=== PATIENT | male | born 1965 | race Caucasian/White ===

== ENCOUNTER 2022-11-03 10:53 | Inpatient (IN) | payer OTHER ==
[~2022-11-03] VITALS: Ht 157.5 cm; Wt 68.0 kg
[2022-11-03 11:24] LABS: BASOPHILS # (AUTO) 0.1 K/UL (0.0-0.2); BASOPHILS % (AUTO) 0.6 % (0.0-2.0); EOSINOPHILS # (AUTO) 0.1 K/uL (0.0-0.7); EOSINOPHILS % (AUTO) 0.7 % (0.0-7.0); HEMATOCRIT 42.6 % (36.7-47.1); LYMPHOCYTES % (AUTO) 13.9 % (20.5-51.5); MEAN CORPUSCULAR HEMOGLOBIN 29.8 uug (23.8-33.4); MEAN CORPUSCULAR HGB CONC 33 g/dL (32.5-36.3); MEAN CORPUSCULAR VOLUME 90.7 fL (73.0-96.2); MONOCYTES # (AUTO) 0.6 K/uL (0.1-1.30); MONOCYTES % (AUTO) 4.3 % (0.0-11.0); NEUTROPHILS # (AUTO) 11.4 K/uL (1.8-8.9); NEUTROPHILS % (AUTO) 80.5 % (38.5-71.5); PLATELET COUNT (AUTO) 383 K/uL (152-348); RED BLOOD CELL COUNT(AUTO) 4.69 MIL/uL (4.06-5.63); RED CELL DISTRIBUTION WIDTH 15.9 % (12.1-16.2); WHITE BLOOD COUNT (AUTO) 14.1 K/uL (3.6-10.2)
[2022-11-03 11:30] LABS: DIFFERENTIAL COMMENT 1
[2022-11-03 11:50] LABS: CALCIUM 9.2 mg/dL (8.5-10.1); CARBON DIOXIDE 27 mmol/L (21-32); CHLORIDE 102 mmol/L (98-107); CREATININE 0.7 mg/dL (0.6-1.3); GLUCOSE 105 mg/dL (74-106); POTASSIUM 3.9 mmol/L (3.5-5.1); SODIUM SERUM 139 mmol/L (136-145); UREA NITROGEN, BLOOD 13 mg/dL (7-18)
[2022-11-03 12:03] LABS: ALANINE AMINOTRANSFERASE 27 U/L (16-63); ALBUMIN 3.3 g/dL (3.4-5.0); ALKALINE PHOSPHATASE 81 U/L (50-136); ASPARTATE AMINOTRANSFERASE 10 U/L (15-37); BILIRUBIN,DIRECT 0.1 mg/dL (0.0-0.2); BILIRUBIN,TOTAL 0.2 mg/dL (0.2-1.0); NT-PRO BNP 33 pg/mL (0-125); TOTAL PROTEIN, SERUM 7.2 g/dL (6.4-8.2)
[2022-11-03] MEDS ORDERED: REMEDY ESSENTIAL ZINC PASTE 113 GM TP PRN (17:00)
[2022-11-03] MEDS ORDERED: IV D5 1/2 NS 1000 ML 1,000 ML IV PRN (17:00)
[2022-11-03] MEDS ORDERED: ONDANSETRON 4 MG/2 ML VIAL IV PRN (17:00)
[2022-11-03] MEDS ORDERED: ACETAMINOPHEN 325 MG TABLET PO PRN (17:00)
[2022-11-03 17:10] VITALS: BP 97/57; TEMP 98.4; O2SAT 94
[2022-11-03 18:00] VITALS: BP 119/76; TEMP 97.4; O2SAT 98
[2022-11-03 20:00] VITALS: BP 121/64; TEMP 97.4; O2SAT 100
[2022-11-03] MEDS: LORAZEPAM 1 MG TABLET PO SCH (21:58)
[2022-11-03] MEDS: IV D5 1/2 NS 1000 ML 1,000 ML IV PRN (21:59)
[2022-11-04 04:00] VITALS: BP 115/66; TEMP 98.1; O2SAT 98
[2022-11-04 06:41] LABS: BASOPHILS % (AUTO) 0.4 % (0.0-2.0); EOSINOPHILS # (AUTO) 0.3 K/uL (0.0-0.7); EOSINOPHILS % (AUTO) 2.6 % (0.0-7.0); HEMATOCRIT 39.9 % (36.7-47.1); HEMOGLOBIN 13.3 g/dL (12.5-16.3); LYMPHOCYTES # (AUTO) 2.2 K/uL (0.8-4.8); LYMPHOCYTES % (AUTO) 20.7 % (20.5-51.5); MEAN CORPUSCULAR HEMOGLOBIN 30.4 uug (23.8-33.4); MEAN CORPUSCULAR HGB CONC 33 g/dL (32.5-36.3); MEAN CORPUSCULAR VOLUME 91.4 fL (73.0-96.2); MONOCYTES # (AUTO) 0.6 K/uL (0.1-1.30); MONOCYTES % (AUTO) 5.7 % (0.0-11.0); NEUTROPHILS # (AUTO) 7.5 K/uL (1.8-8.9); NEUTROPHILS % (AUTO) 70.6 % (38.5-71.5); PLATELET COUNT (AUTO) 338 K/uL (152-348); RED BLOOD CELL COUNT(AUTO) 4.37 MIL/uL (4.06-5.63); RED CELL DISTRIBUTION WIDTH 16.3 % (12.1-16.2); WHITE BLOOD COUNT (AUTO) 10.6 K/uL (3.6-10.2)
[2022-11-04 06:59] LABS: DIFFERENTIAL COMMENT 1
[2022-11-04 07:03] LABS: CALCIUM 8.6 mg/dL (8.5-10.1); CARBON DIOXIDE 27 mmol/L (21-32); CHLORIDE 104 mmol/L (98-107); CREATININE 0.6 mg/dL (0.6-1.3); GLUCOSE 92 mg/dL (74-106); PHOSPHOROUS 3.7 mg/dL (2.5-4.9); SODIUM SERUM 140 mmol/L (136-145); UREA NITROGEN, BLOOD 8 mg/dL (7-18)
[2022-11-04 08:04] VITALS: BP 102/64; TEMP 97.6; O2SAT 96
[2022-11-04] MEDS: LORAZEPAM 1 MG TABLET PO SCH ×2 (08:44→21:10)
[2022-11-04] MEDS ORDERED: GOLYTELY 4000 ML BOTTLE PO ONE (09:00)
[2022-11-04 11:00] VITALS: BP 103/63; TEMP 98.4; O2SAT 95
[2022-11-04] MEDS ORDERED: ERYTHROMYCIN BASE 250 MG TABLET.DR PO ONE ×3 (13:00→23:00)
[2022-11-04] MEDS ORDERED: NEOMYCIN SULFATE 500 MG TABLET PO ONE ×3 (13:00→23:00)
[2022-11-04] MEDS: IV D5 1/2 NS 1000 ML 1,000 ML IV PRN (13:19)
[2022-11-04] MEDS: ERYTHROMYCIN ETHYLSUCC 200 MG/5 ML SUSPENSION 100ML PO SCH ×2 (13:19→14:00)
[2022-11-04] MEDS ORDERED: ERYTHROMYCIN ETHYLSUCC 200 MG/5 ML SUSPENSION 100ML PO SCH ×2 (14:00→23:00)
[2022-11-04 15:14] VITALS: BP 107/67; TEMP 98.6; O2SAT 96
[2022-11-04] MEDS ORDERED: ACET-3117 PO (15:55)
[2022-11-04] MEDS ORDERED: ACET325T53 PO (15:56)
[2022-11-04 21:19] VITALS: BP 100/51; TEMP 98.2; O2SAT 97
[2022-11-04] MEDS ORDERED: PIPERACILLIN/TAZOBACTAM/D5W 50 ML IV ONE (22:16)
[2022-11-04] MEDS: PIPERACILLIN SODIUM/TAZOBACTAM 3.375 G in IV DEXTROSE 5% 50 ML IV SCH (22:36)
[2022-11-04] MEDS: MORPHINE SULFATE 2 MG/1 ML DISP.SYRIN IV PRN (23:31)
[2022-11-05 04:12] VITALS: BP 108/66; TEMP 98.4; O2SAT 94
[2022-11-05] MEDS ORDERED: PIPERACILLIN/TAZOBACTAM/D5W 50 ML IV ONE (04:30)
[2022-11-05] MEDS: PIPERACILLIN SODIUM/TAZOBACTAM 3.375 G in IV DEXTROSE 5% 50 ML IV SCH (05:50)
[2022-11-05] MEDS: IV D5 1/2 NS 1000 ML 1,000 ML IV PRN (05:50)
[2022-11-05 07:12] LABS: BASOPHILS % (AUTO) 0.5 % (0.0-2.0); EOSINOPHILS # (AUTO) 0.3 K/uL (0.0-0.7); EOSINOPHILS % (AUTO) 2.9 % (0.0-7.0); HEMATOCRIT 36.5 % (36.7-47.1); HEMOGLOBIN 12.3 g/dL (12.5-16.3); LYMPHOCYTES % (AUTO) 21.6 % (20.5-51.5); MEAN CORPUSCULAR HEMOGLOBIN 30.7 uug (23.8-33.4); MEAN CORPUSCULAR HGB CONC 34 g/dL (32.5-36.3); MEAN CORPUSCULAR VOLUME 91.1 fL (73.0-96.2); MONOCYTES # (AUTO) 0.6 K/uL (0.1-1.30); MONOCYTES % (AUTO) 6.6 % (0.0-11.0); NEUTROPHILS # (AUTO) 6.4 K/uL (1.8-8.9); NEUTROPHILS % (AUTO) 68.4 % (38.5-71.5); PLATELET COUNT (AUTO) 335 K/uL (152-348); RED BLOOD CELL COUNT(AUTO) 4.01 MIL/uL (4.06-5.63); RED CELL DISTRIBUTION WIDTH 15.7 % (12.1-16.2); WHITE BLOOD COUNT (AUTO) 9.3 K/uL (3.6-10.2)
[2022-11-05 07:30] LABS: DIFFERENTIAL COMMENT 1
[2022-11-05 07:30] LABS: *BILIRUBIN,URIN NEGATIVE (NEGATIVE); *BLOOD, URINE NEGATIVE (NEGATIVE); *CLARITY,URINE CLEAR (CLEAR); *COLOR,URINE YELLOW (YELLOW); *KETONES,URINE NEGATIVE (NEGATIVE); *PROTEIN,URINE NEGATIVE (NEGATIVE); *UROBILINOGEN,URINE 0.2 E.U./dl (NORMAL); LEUKOCYTE ESTERASE ,URINE NEGATIVE (NEGATIVE); NITRITE, URINE NEGATIVE (NEGATIVE); PH,URINE 8.5 (5.0-8.0); UGLUCOSE NEGATIVE (NEGATIVE)
[2022-11-05 07:42] LABS: ALANINE AMINOTRANSFERASE 14 U/L (16-63); ALBUMIN 2.5 g/dL (3.4-5.0); ALKALINE PHOSPHATASE 69 U/L (50-136); ASPARTATE AMINOTRANSFERASE 10 U/L (15-37); BILIRUBIN,TOTAL 0.5 mg/dL (0.2-1.0); CALCIUM 8.2 mg/dL (8.5-10.1); CARBON DIOXIDE 27 mmol/L (21-32); CHLORIDE 106 mmol/L (98-107); CREATININE 0.6 mg/dL (0.6-1.3); GLUCOSE 92 mg/dL (74-106); MAGNESIUM 1.9 mg/dL (1.8-2.4); PHOSPHOROUS 3.8 mg/dL (2.5-4.9); POTASSIUM 3.5 mmol/L (3.5-5.1); SODIUM SERUM 141 mmol/L (136-145); TOTAL PROTEIN, SERUM 5.8 g/dL (6.4-8.2); UREA NITROGEN, BLOOD 8 mg/dL (7-18)
[2022-11-05 08:00] VITALS: BP 92/58; TEMP 97.7; O2SAT 94
[2022-11-05] MEDS: LORAZEPAM 1 MG TABLET PO SCH ×2 (09:00→20:18)
[2022-11-05 09:49] LABS: CHOLESTEROL 143 mg/dL (<200); HDL CHOLESTEROL 41 mg/dL (40-60); TRIGLYCERIDES 72 MG/DL (30-150)
[2022-11-05] MEDS ORDERED: MIDAZOLAM HCL 2 MG/2 ML VIAL ONE (10:05)
[2022-11-05] MEDS ORDERED: FENTANYL CITRATE 250 MCG/5 ML AMPUL ONE (10:06)
[2022-11-05] MEDS ORDERED: HYDROMORPHONE 2 MG/1 ML DISP.SYRIN ONE (10:06)
[2022-11-05] MEDS ORDERED: ROCURONIUM BROMIDE 50 MG/5 ML VIAL ONE (10:07)
[2022-11-05] MEDS ORDERED: FAMOTIDINE. 20 MG/2 ML VIAL IV ONE (10:07)
[2022-11-05] MEDS ORDERED: CLINDAMYCIN 600 MG PIGGYBACK**ER OMNI IV ONE (10:08)
[2022-11-05] MEDS ORDERED: BUPIVACAINE 0.25% 30 ML VIAL ONE (11:46)
[2022-11-05] MEDS ORDERED: LIDOCAINE 1%-EPI 1:100,000 20 ML VIAL ONE (11:46)
[2022-11-05] MEDS ORDERED: SILVER NITRATE APPLICATOR STICK EACH TP ONE (12:15)
[2022-11-05] MEDS ORDERED: CEFAZOLIN 1 G VIAL ONE (13:14)
[2022-11-05] MEDS ORDERED: LIDOCAINE-MPF 2% 5 ML VIAL ONE (13:14)
[2022-11-05] MEDS ORDERED: EPHEDRINE SULFATE 50 MG/ML AMPUL ONE (13:14)
[2022-11-05] MEDS ORDERED: NEOSTIGMINE METHYLSULFATE 10 MG/10 ML VIAL ONE (13:14)
[2022-11-05] MEDS ORDERED: ONDANSETRON 4 MG/2 ML VIAL ONE (13:14)
[2022-11-05] MEDS ORDERED: GLYCOPYRROLATE 0.4 MG/2 ML VIAL ONE (13:14)
[2022-11-05] MEDS ORDERED: METOCLOPRAMIDE HCL 10 MG/2 ML VIAL ONE (13:14)
[2022-11-05] MEDS ORDERED: PROPOFOL 200 MG/20 ML BOTTLE ONE (13:14)
[2022-11-05] MEDS ORDERED: IV LACTATED RINGERS SOLUTION 1,000 ML IV PRN (13:45)
[2022-11-05] MEDS ORDERED: PIPERACILLIN SODIUM/TAZOBACTAM 3.375 G in IV DEXTROSE 5% 50 ML IV SCH (14:00)
[2022-11-05] MEDS: PIPERACILLIN SODIUM/TAZOBACTAM 3.375 G in IV DEXTROSE 5% 100 ML IV SCH ×2 (14:04→21:54)
[2022-11-05 14:29] VITALS: BP 98/50; TEMP 98.2; O2SAT 98
[2022-11-05] MEDS: CELECOXIB 200 MG CAPSULE PO SCH ×2 (15:01→20:18)
[2022-11-05] MEDS: ACETAMINOPHEN 325 MG TABLET PO SCH ×2 (15:01→21:54)
[2022-11-05] MEDS: GABAPENTIN 100 MG CAPSULE PO SCH ×2 (15:01→21:54)
[2022-11-05 15:30] VITALS: O2SAT 98
[2022-11-05 16:54] VITALS: BP 98/62; TEMP 98.2; O2SAT 100
[2022-11-05] MEDS: MORPHINE SULFATE 2 MG/1 ML DISP.SYRIN IV PRN (18:01)
[2022-11-05 20:00] VITALS: BP 99/52; TEMP 98; O2SAT 95
[2022-11-05] MEDS ORDERED: IV NORMAL SALINE 500 ML IV ONE (23:45)
[2022-11-06] VITALS (7 sets, daily range): BP systolic 83–98; BP diastolic 48–60; TEMP 98.1–98.9; O2SAT 93–99
[2022-11-06 00:01] LABS: BASOPHILS % (AUTO) 0.4 % (0.0-2.0); EOSINOPHILS # (AUTO) 0.2 K/uL (0.0-0.7); EOSINOPHILS % (AUTO) 1.6 % (0.0-7.0); HEMATOCRIT 34.4 % (36.7-47.1); HEMOGLOBIN 11.3 g/dL (12.5-16.3); LYMPHOCYTES # (AUTO) 2.1 K/uL (0.8-4.8); LYMPHOCYTES % (AUTO) 18.7 % (20.5-51.5); MEAN CORPUSCULAR HGB CONC 33 g/dL (32.5-36.3); MONOCYTES # (AUTO) 0.7 K/uL (0.1-1.30); MONOCYTES % (AUTO) 6.1 % (0.0-11.0); NEUTROPHILS # (AUTO) 8.4 K/uL (1.8-8.9); NEUTROPHILS % (AUTO) 73.2 % (38.5-71.5); PLATELET COUNT (AUTO) 299 K/uL (152-348); RED BLOOD CELL COUNT(AUTO) 3.78 MIL/uL (4.06-5.63); RED CELL DISTRIBUTION WIDTH 15.6 % (12.1-16.2); WHITE BLOOD COUNT (AUTO) 11.4 K/uL (3.6-10.2)
[2022-11-06 00:09] LABS: DIFFERENTIAL COMMENT 1
[2022-11-06 00:19] LABS: CALCIUM 7.6 mg/dL (8.5-10.1); CREATININE 0.8 mg/dL (0.6-1.3); POTASSIUM 3.5 mmol/L (3.5-5.1)
[2022-11-06] MEDS ORDERED: IV NS 1000 ML 1,000 ML IV ONE (01:45)
[2022-11-06] MEDS: GABAPENTIN 100 MG CAPSULE PO SCH ×4 (06:05→21:37)
[2022-11-06] MEDS: PIPERACILLIN SODIUM/TAZOBACTAM 3.375 G in IV DEXTROSE 5% 100 ML IV SCH (06:05)
[2022-11-06] MEDS: ACETAMINOPHEN 325 MG TABLET PO SCH ×3 (06:05→21:33)
[2022-11-06] MEDS ORDERED: MAGNESIUM SULFATE/D5W 100 ML IV SCH ×2 (09:00→11:00)
[2022-11-06] MEDS: CELECOXIB 200 MG CAPSULE PO SCH ×3 (09:16→21:33)
[2022-11-07 04:01] VITALS: BP 101/62; TEMP 98.8; O2SAT 95
[2022-11-07] MEDS: GABAPENTIN 100 MG CAPSULE PO SCH (06:00)
[2022-11-07] MEDS: ACETAMINOPHEN 325 MG TABLET PO SCH (06:07)
[2022-11-07 06:53] LABS: BASOPHILS % (AUTO) 0.3 % (0.0-2.0); EOSINOPHILS # (AUTO) 0.3 K/uL (0.0-0.7); EOSINOPHILS % (AUTO) 2.4 % (0.0-7.0); HEMATOCRIT 36.4 % (36.7-47.1); LYMPHOCYTES # (AUTO) 1.9 K/uL (0.8-4.8); LYMPHOCYTES % (AUTO) 16.5 % (20.5-51.5); MEAN CORPUSCULAR HEMOGLOBIN 30.1 uug (23.8-33.4); MEAN CORPUSCULAR HGB CONC 33 g/dL (32.5-36.3); MEAN CORPUSCULAR VOLUME 91.1 fL (73.0-96.2); MONOCYTES # (AUTO) 0.5 K/uL (0.1-1.30); MONOCYTES % (AUTO) 4.5 % (0.0-11.0); NEUTROPHILS % (AUTO) 76.3 % (38.5-71.5); PLATELET COUNT (AUTO) 310 K/uL (152-348); RED CELL DISTRIBUTION WIDTH 15.5 % (12.1-16.2); WHITE BLOOD COUNT (AUTO) 11.8 K/uL (3.6-10.2)
[2022-11-07 07:02] LABS: DIFFERENTIAL COMMENT 1
[2022-11-07 07:15] LABS: ALANINE AMINOTRANSFERASE 14 U/L (16-63); ALBUMIN 2.3 g/dL (3.4-5.0); ALKALINE PHOSPHATASE 61 U/L (50-136); ASPARTATE AMINOTRANSFERASE 9 U/L (15-37); BILIRUBIN,TOTAL 0.4 mg/dL (0.2-1.0); CALCIUM 8.5 mg/dL (8.5-10.1); CARBON DIOXIDE 27 mmol/L (21-32); CHLORIDE 109 mmol/L (98-107); CREATININE 0.6 mg/dL (0.6-1.3); GLUCOSE 88 mg/dL (74-106); MAGNESIUM 1.8 mg/dL (1.8-2.4); PHOSPHOROUS 3.2 mg/dL (2.5-4.9); POTASSIUM 3.5 mmol/L (3.5-5.1); SODIUM SERUM 145 mmol/L (136-145); TOTAL PROTEIN, SERUM 5.7 g/dL (6.4-8.2); UREA NITROGEN, BLOOD 6 mg/dL (7-18)
[2022-11-07] MEDS ORDERED: POTASSIUM CHLORIDE 20 MEQ TAB.PRT.SR PO ONE (07:45)
[2022-11-07] MEDS ORDERED: MULTIVITAMINS,THERAPEUTIC TABLET PO SCH (09:00)
[2022-11-07] MEDS: CELECOXIB 200 MG CAPSULE PO SCH (09:22)
[2022-11-07] MEDS ORDERED: DOCU-141 PO (10:35)
[2022-11-07] MEDS ORDERED: ACID1TAB4 PO (10:35)
[2022-11-07] MEDS ORDERED: ACET-2154 PO (10:35)
[2022-11-07] MEDS ORDERED: CEPH500C2 PO (10:35)
[2022-11-07 11:36] VITALS: BP 108/58; TEMP 98.2; O2SAT 96
[2022-11-08] MEDS ORDERED: PANTOPRAZOLE SODIUM 40 MG TABLET.DR PO SCH (07:00)
== END 2022-11-07 12:10 | disposition home health service (06) | DRG 231 ==
LOC: ER 10:53 → MEDSURG3 15:55 → TELE3 11-06 02:56 → MEDSURG3 11-06 22:08
PROVIDERS: ADMIT Nurse Practitioner Acute Care; ATTEND Nurse Practitioner Acute Care
PROC: 0D1N4Z4 Bypass Sigmoid Colon to Cutaneous, Percutaneous Endoscopic Approach (ICD-10-PCS; principal; 2022-11-05)
PROC: 0D9P3ZZ Drainage of Rectum, Percutaneous Approach (ICD-10-PCS; principal; 2022-11-05)
DX: K61.31 Horseshoe abscess (principal); E44.1 Mild protein-calorie malnutrition; D72.829 Elevated white blood cell count, unspecified; K61.1 Rectal abscess; Z87.891 Personal history of nicotine dependence; D75.839 Thrombocytosis, unspecified; K62.89 Other specified diseases of anus and rectum
CPT/HCPCS: 36415; 71045; 83735; 84100; 84484; 85025; 85730; 86850; 86900; 86901; 93005; A4649; A4663; G0378; J0690; J1170; J2250; J2270; J2405; J2543; J2765; J3010; J3475; J3490; J7040; J7120; J8499

== ENCOUNTER 2023-06-05 07:44 | Inpatient (IN) | payer OTHER ==
[~2023-06-05] VITALS: Ht 160 cm; Wt 60.8 kg
[~2023-06-05 07:44] MED LIST: ACET-2154 PO; ACID1TAB4 PO; CEPH500C2 PO
[2023-06-05 08:53] LABS: BASOPHILS # (AUTO) 0.1 K/UL (0.0-0.2); BASOPHILS % (AUTO) 0.5 % (0.0-2.0); EOSINOPHILS # (AUTO) 0.2 K/uL (0.0-0.7); EOSINOPHILS % (AUTO) 1.8 % (0.0-7.0); HEMATOCRIT 44.8 % (36.7-47.1); HEMOGLOBIN 15.3 g/dL (12.5-16.3); LYMPHOCYTES # (AUTO) 2.2 K/uL (0.8-4.8); LYMPHOCYTES % (AUTO) 17.6 % (20.5-51.5); MEAN CORPUSCULAR HGB CONC 34 g/dL (32.5-36.3); MEAN CORPUSCULAR VOLUME 93.5 fL (73.0-96.2); MONOCYTES # (AUTO) 0.5 K/uL (0.1-1.30); MONOCYTES % (AUTO) 4.2 % (0.0-11.0); NEUTROPHILS # (AUTO) 9.5 K/uL (1.8-8.9); NEUTROPHILS % (AUTO) 75.9 % (38.5-71.5); PLATELET COUNT (AUTO) 300 K/uL (152-348); RED BLOOD CELL COUNT(AUTO) 4.79 MIL/uL (4.06-5.63); RED CELL DISTRIBUTION WIDTH 14.3 % (12.1-16.2); WHITE BLOOD COUNT (AUTO) 12.5 K/uL (3.6-10.2)
[2023-06-05 09:01] LABS: CARBON DIOXIDE 26 mmol/L (21-32); CHLORIDE 107 mmol/L (98-107); CREATININE 0.7 mg/dL (0.6-1.3); GLUCOSE 110 mg/dL (74-106); POTASSIUM 3.7 mmol/L (3.5-5.1); SODIUM SERUM 141 mmol/L (136-145); UREA NITROGEN, BLOOD 17 mg/dL (7-18)
[2023-06-05 09:03] LABS: DIFFERENTIAL COMMENT 1
[2023-06-05 09:10] LABS: ALANINE AMINOTRANSFERASE 26 U/L (16-63); ALBUMIN 3.2 g/dL (3.4-5.0); ALKALINE PHOSPHATASE 73 U/L (50-136); ASPARTATE AMINOTRANSFERASE 14 U/L (15-37); BILIRUBIN,DIRECT 0.1 mg/dL (0.0-0.2); BILIRUBIN,TOTAL 0.4 mg/dL (0.2-1.0); LIPASE 43 U/L (16-77)
[2023-06-05] MEDS ORDERED: PIPERACILLIN/TAZO 4.5 GM VIAL IV ONE (10:30)
[2023-06-05] MEDS ORDERED: PIPERACILLIN SODIUM/TAZOBACTAM 4.5 G in IV DEXTROSE 5% 50 ML IV SCH (10:30)
[2023-06-05] MEDS: PIPERACILLIN SODIUM/TAZOBACTAM 4.5 G in IV DEXTROSE 5% 50 ML IV ONE (10:50)
[2023-06-05] MEDS: IV NORMAL SALINE 1000 ML BAG IV ONE (10:50)
[2023-06-05] MEDS ORDERED: KETOROLAC TROMETHAMINE 15 MG INJ ONE (11:04)
[2023-06-05] MEDS: KETOROLAC TROMETHAMINE 15 MG INJ IVP ONE (11:08)
[2023-06-05] MEDS ORDERED: ONDANSETRON 4 MG/2 ML VIAL IV PRN (11:45)
[2023-06-05] MEDS ORDERED: MORPHINE SULFATE 2 MG/1 ML DISP.SYRIN IV PRN (11:45)
[2023-06-05] MEDS ORDERED: ACETAMINOPHEN 325 MG TABLET PO PRN (11:45)
[2023-06-05] MEDS ORDERED: diphenhydrAMINE 50 MG/1 ML VIAL ONE (11:47)
[2023-06-05] MEDS: diphenhydrAMINE 50 MG/1 ML VIAL IV PRN (11:54)
[2023-06-05 16:00] VITALS: BP 98/64; TEMP 97.2
[2023-06-05] MEDS ORDERED: TRANEXAMIC ACID 1,000 MG/10 ML VIAL ONE ×2 (16:00→17:48)
[2023-06-05] MEDS ORDERED: LIDOCAINE-MPF 2% 5 ML VIAL ONE (16:45)
[2023-06-05] MEDS ORDERED: CEFAZOLIN 1 G VIAL ONE (16:45)
[2023-06-05] MEDS ORDERED: PROPOFOL 200 MG/20 ML BOTTLE ONE (16:45)
[2023-06-05] MEDS ORDERED: METOCLOPRAMIDE HCL 10 MG/2 ML VIAL ONE (16:45)
[2023-06-05] MEDS ORDERED: PHENYLEPHRINE 10 MG/1 ML VIAL ONE (16:45)
[2023-06-05] MEDS ORDERED: VECURONIUM BROMIDE 10 MG VIAL IV ONE (16:45)
[2023-06-05] MEDS ORDERED: DEXAMETHASONE SOD PHOSPHATE 4 MG INJ ONE (16:45)
[2023-06-05] MEDS ORDERED: ROPIVACAINE HCL/PF 0.5% ( 5 MG/ML ) , 20 ML VIAL ONE (18:47)
[2023-06-05] MEDS ORDERED: HYDROMORPHONE 2 MG/1 ML DISP.SYRIN ONE (18:47)
[2023-06-05] MEDS ORDERED: ALBUMIN HUMAN 5% 250 ML ONE (20:00)
[2023-06-05 22:00] VITALS: BP 110/68; TEMP 97.3; O2SAT 94
[2023-06-05] MEDS: HYDROMORPHONE 1 MG/1 ML DISP.SYRIN IVP PRN (22:55)
[2023-06-05] MEDS: IV NS 1000 ML 1,000 ML IV PRN (23:01)
[2023-06-05] MEDS ORDERED: PIPERACILLIN SODIUM/TAZO 3.375 GM VIAL ONE (23:22)
[2023-06-05] MEDS: PIPERACILLIN SODIUM/TAZOBACTAM 3.375 G in IV DEXTROSE 5% 50 ML IV SCH (23:54)
[2023-06-06] MEDS: PROPOFOL 100 ML ONE (00:08)
[2023-06-06] MEDS ORDERED: PIPERACILLIN/TAZOBACTAM/D5W 50 ML IV ONE (00:29)
[2023-06-06] MEDS: IBUPROFEN 800 MG TABLET PO PRN (01:16)
[2023-06-06 06:00] VITALS: BP 95/53; TEMP 99.1; O2SAT 96
[2023-06-06] MEDS: GABAPENTIN 100 MG CAPSULE PO SCH (06:16)
[2023-06-06] MEDS: ACETAMINOPHEN 325 MG TABLET PO SCH (06:16)
[2023-06-06 08:10] LABS: BASOPHILS % (AUTO) 0.1 % (0.0-2.0); DIFFERENTIAL COMMENT 1; HEMOGLOBIN 12.7 g/dL (12.5-16.3); LYMPHOCYTES # (AUTO) 1.5 K/uL (0.8-4.8); LYMPHOCYTES % (AUTO) 12.3 % (20.5-51.5); MEAN CORPUSCULAR HEMOGLOBIN 31.8 uug (23.8-33.4); MEAN CORPUSCULAR HGB CONC 34 g/dL (32.5-36.3); MEAN CORPUSCULAR VOLUME 94.7 fL (73.0-96.2); MONOCYTES # (AUTO) 0.5 K/uL (0.1-1.30); MONOCYTES % (AUTO) 4.3 % (0.0-11.0); NEUTROPHILS # (AUTO) 10.4 K/uL (1.8-8.9); NEUTROPHILS % (AUTO) 83.3 % (38.5-71.5); PLATELET COUNT (AUTO) 280 K/uL (152-348); RED BLOOD CELL COUNT(AUTO) 4.01 MIL/uL (4.06-5.63); RED CELL DISTRIBUTION WIDTH 14.4 % (12.1-16.2); WHITE BLOOD COUNT (AUTO) 12.5 K/uL (3.6-10.2)
[2023-06-06 08:57] LABS: CALCIUM 7.7 mg/dL (8.5-10.1); CREATININE 0.7 mg/dL (0.6-1.3); MAGNESIUM 1.9 mg/dL (1.8-2.4); PHOSPHOROUS 4.1 mg/dL (2.5-4.9); POTASSIUM 3.7 mmol/L (3.5-5.1)
[2023-06-06 10:15] VITALS: BP 100/55; TEMP 98; O2SAT 98
[2023-06-06] MEDS ORDERED: PIPERACILLIN SODIUM/TAZOBACTAM 3.375 G in IV DEXTROSE 5% 100 ML IV SCH ×2 (14:00→15:00)
[2023-06-06] MEDS: PIPERACILLIN SODIUM/TAZOBACTAM 3.375 G in IV DEXTROSE 5% 50 ML IV SCH (14:45)
[2023-06-06 15:44] VITALS: BP 101/52; TEMP 98; O2SAT 98
[2023-06-06 22:00] VITALS: BP 98/55; TEMP 98.1; O2SAT 100
[2023-06-06 22:55] LABS: *BILIRUBIN,URIN NEGATIVE (NEGATIVE); *BLOOD, URINE NEGATIVE (NEGATIVE); *CLARITY,URINE CLEAR (CLEAR); *COLOR,URINE YELLOW (YELLOW); *KETONES,URINE 1+ (NEGATIVE); *PROTEIN,URINE NEGATIVE (NEGATIVE); *UROBILINOGEN,URINE 0.2 E.U./dl (NORMAL); LEUKOCYTE ESTERASE ,URINE NEGATIVE (NEGATIVE); NITRITE, URINE NEGATIVE (NEGATIVE); PH,URINE 6.5 (5.0-8.0); UGLUCOSE NEGATIVE (NEGATIVE)
[2023-06-06 23:53] LABS: BACTERIA,URINE FEW /HPF (NONE SEEN); RBC,URINE 0-3 /HPF (0-3); SQUAMOUS EPITHELIAL CELL,UR FEW /HPF (NONE SEEN); WBC,URINE 0-3 /HPF (0-3)
[2023-06-07 05:26] VITALS: BP 99/50; TEMP 98; O2SAT 99
[2023-06-07] MEDS ORDERED: CIPR500T5 PO (06:01)
[2023-06-07 06:21] LABS: BASOPHILS % (AUTO) 0.3 % (0.0-2.0); EOSINOPHILS # (AUTO) 0.3 K/uL (0.0-0.7); EOSINOPHILS % (AUTO) 2.4 % (0.0-7.0); HEMATOCRIT 37.5 % (36.7-47.1); HEMOGLOBIN 12.6 g/dL (12.5-16.3); LYMPHOCYTES % (AUTO) 15.7 % (20.5-51.5); MEAN CORPUSCULAR HEMOGLOBIN 31.6 uug (23.8-33.4); MEAN CORPUSCULAR HGB CONC 34 g/dL (32.5-36.3); MEAN CORPUSCULAR VOLUME 94.5 fL (73.0-96.2); MONOCYTES # (AUTO) 0.7 K/uL (0.1-1.30); MONOCYTES % (AUTO) 5.7 % (0.0-11.0); NEUTROPHILS # (AUTO) 9.9 K/uL (1.8-8.9); NEUTROPHILS % (AUTO) 75.9 % (38.5-71.5); PLATELET COUNT (AUTO) 275 K/uL (152-348); RED BLOOD CELL COUNT(AUTO) 3.97 MIL/uL (4.06-5.63); RED CELL DISTRIBUTION WIDTH 14.1 % (12.1-16.2)
[2023-06-07 06:25] LABS: DIFFERENTIAL COMMENT 1
[2023-06-07 06:36] LABS: CALCIUM 7.9 mg/dL (8.5-10.1); CREATININE 0.7 mg/dL (0.6-1.3); MAGNESIUM 1.9 mg/dL (1.8-2.4); PHOSPHOROUS 1.8 mg/dL (2.5-4.9); POTASSIUM 3.3 mmol/L (3.5-5.1)
[2023-06-07 08:56] VITALS: BP 106/47; TEMP 98.2; O2SAT 92
[2023-06-07] MEDS ORDERED: METR500T PO (09:03)
[2023-06-07] MEDS: POTASSIUM CHLORIDE 20 MEQ TAB.PRT.SR PO ONE (09:22)
[2023-06-07 12:00] VITALS: BP 119/56; TEMP 97.9; O2SAT 94
[2023-06-07] MEDS ORDERED: PIPERACILLIN SODIUM/TAZOBACTAM 3.375 G in IV DEXTROSE 5% 100 ML IV SCH (15:00)
[2023-06-07] MEDS: NEUTRA PHOS PACKET PO ONE (15:19)
== END 2023-06-07 16:15 | disposition home or self-care (01) | DRG 231 ==
LOC: ER 07:44 → MEDSURG3 14:44
PROVIDERS: ADMIT Nurse Practitioner Acute Care; ATTEND Nurse Practitioner Acute Care
PROC: 0D1N0Z4 Bypass Sigmoid Colon to Cutaneous, Open Approach (ICD-10-PCS; principal; 2023-06-05)
PROC: 0WJF4ZZ Inspection of Abdominal Wall, Percutaneous Endoscopic Approach (ICD-10-PCS; principal; 2023-06-05)
PROC: 0DBN0ZZ Excision of Sigmoid Colon, Open Approach (ICD-10-PCS; principal; 2023-06-05)
PROC: 0WQF0ZZ Repair Abdominal Wall, Open Approach (ICD-10-PCS; principal; 2023-06-05)
DX: K43.3 Parastomal hernia with obstruction, without gangrene (principal); K61.1 Rectal abscess; N20.0 Calculus of kidney; L29.9 Pruritus, unspecified; D72.829 Elevated white blood cell count, unspecified; J98.11 Atelectasis
CPT/HCPCS: 36415; 71045; 83605; 83690; 83735; 84100; 84484; 85025; 85730; 87040; 93005; A4606; A4663; G0378; J0690; J1100; J1170; J1200; J1885; J2543; J2765; J2795; J3490; J7040; P9045